=== PATIENT | female | born 1975 | race Caucasian/White ===

== ENCOUNTER 2017-06-25 14:33 | Outpatient (CLI) | payer OTHER ==
--- NOTE | 2017-06-25 15:19 | RAD ---
LUMBAR SPINE TWO VIEWS: History: Low back pain. FINDINGS: Lumbar vertebrae maintain height. There is mild loss of disc space at L5-S1. There is a slight kimani listhesis at L5-S1. There is evidence of posterior spondylosis. The other vertebrae maintain normal alignment. Disc spaces above L5 are normally preserved. Mild face t hypertrophy at L4-5 and L5-S1. IMPRESSION: Mild loss of disc space at L5-S1 with mild anterolisthesis and questioned posterior spondylosis. POS: [facility]
== END 2017-06-25 14:34 | disposition home or self-care (01) ==
LOC: TBSIIMAG 14:33
PROVIDERS: ATTEND Neurological Surgery
DX: M54.5 Low back pain (principal); M51.87 Other intervertebral disc disorders, lumbosacral region; M43.17 Spondylolisthesis, lumbosacral region
CPT/HCPCS: 72100

== ENCOUNTER 2017-07-04 05:53 | Day surgery (SDC) | payer OTHER ==
[2017-07-03 08:11] VITALS: BMI 34.7
[2017-07-04] MEDS ORDERED: Thrombin 5000 UNITS/5 ML VIAL ONE (06:16)
[2017-07-04] MEDS ORDERED: Sodium Chloride 0.9% 10 ML ONE (06:16)
[2017-07-04] MEDS ORDERED: Bupivacaine HCl 0.5%/Epinephrine 1:200,000/PF 30 ml Vial ONE (06:16)
[2017-07-04] MEDS ORDERED: CEFAZOLIN/Water 2 GM/20 ML SYRINGE ONE (06:42)
[2017-07-04 06:47] LABS: INR-International Normal Ratio 1.1; PTT 32.2 SEC (22.9-36.1); Prothrombin Time 13.8 SEC (12.0-14.7)
[2017-07-04 06:48] LABS: Hemoglobin 14.2 g/dL (12.0-16.0); Mean Corpuscular HGB CONC 35.6 g/dL (32.0-36.0); Mean Corpuscular Volume 89.9 fl (81.0-99.0); Mean Platelet Volume 6.7 fL (7.4-10.4); Platelet Count 268 thou/uL (130-400); RBC Distribution Width 11.3 % (11.5-14.5); Red Blood Cell (RBC) Count 4.43 mill/uL (4.20-5.40)
[2017-07-04] MEDS ORDERED: Scopolamine 1.5 mg/72 hour Patch ONE (06:50)
[2017-07-04] MEDS ORDERED: Promethazine HCl 25 MG/ML VIAL ONE (06:54)
[2017-07-04] MEDS ORDERED: Fentanyl 100 MCG/2 ML VIAL ONE ×4 (06:54→10:47)
[2017-07-04] MEDS ORDERED: HYDROmorphone 0.5 MG/0.5 ML SYRINGE ONE (06:54)
[2017-07-04] MEDS ORDERED: Morphine 4 MG/ML VIAL ONE (12:54)
[2017-07-04] MEDS ORDERED: HYDROcodone/Acetaminophen 5/325 mg Tablet ONE (13:02)
--- NOTE | 2017-07-04 13:56 | OP ---
DATE OF PROCEDURE: 07/04/2017 SURGEON: Rae Cuevas M.D. CONSULTING NURSE: Roly Parks PA-C. PREOPERATIVE INDICATION: Treat pain, prevent neurological deterioration. 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 PROCEDURES PERFORMED: Right-sided L4-L5 and L5-S1 partial hemilaminectomy, medial facetectomy, tanya inotomy, operating microscope. PREOPERATIVE MEDICATIONS: Ancef 2 grams IV. DRAIN NUMBER: Zero. DRAIN TYPE: None. OPERATIVE DICTATION: The patient was brought to the operating room. General endotracheal anesthesia was induced. The patient was positioned prone on the operating table and a lateral fluoro radiograp h was used to plan our incision. The lumbar skin was sterilely prepped and draped. We opened with a 10 blade knife and controlled bleeding with bipolar and monopolar cautery. We used monopolar cauter y to dissect through subcutaneous tissues to the thoracodorsal fascia. We incised the fascia to the right of midline and reflected the paraspinal muscles off the spinous process of L4-L5 and the superi or portion of the sacrum on the right side. A lateral fluoro radiograph confirmed the level upon whi ch we were operating. We then used bone rongeurs to fashion partial hemilaminectomy and medial facet ectomy at L4-L5 and L5-S1. The operative microscope was brought into the field. Under microscopic magnification using microsurgical techniques, we removed the yellow ligament from e ach of the interspaces. We identified the common thecal sac and the L5 and S1 nerve roots. We perfo rmed medial facetectomy until we were lateral to the nerve roots, we performed foraminotomy with fora minotomy Kerrison's over the L5 and S1 nerve roots in their foramen. We made sure a Julien ball prob e could pass through the lateral recess and out the foramen with the nerves. L5 and S1 were not as s everely conjoined set of nerves, but the L5 nerve root did leave the thecal sac inferiorly compared t o the normal configuration and S1 left superiorly, so that their origins were very close to each othe r. Due to the angle of L5 and L4 and the continuing tethering of the nerves, we elected to remove th e superior portion of the right side of the lamina of L5. This completed the right-sided hemilaminec debby. This nicely decompressed the common thecal sac and the L5 nerve root. We could perform wide f oraminotomy over the nerve root and achieve an even better decompression. A Julien ball probe was pa ssed out of the L4 foramen with that nerve finding no impingement and similarly of L5 and S1 nerve ro ots. We irrigated copiously with bacitracin irrigation. We controlled bleeding with gentle bipolar cautery. We infused local anesthetic in the paraspinal muscles. We removed the operating microscope and we closed the wound in anatomic layers. We applied a sterile dressing. This is a clean case an d no contamination.
[2017-07-04] MEDS ORDERED: PROPOFOL 200 MG/20 ML VIAL ONE (17:11)
[2017-07-04] MEDS ORDERED: Lidocaine 1% PF 5 ML VIAL ONE (17:11)
[2017-07-04] MEDS ORDERED: ePHEDrine/0.9% NaCl/PF SYRINGE 50 mg/10 ml ONE (17:11)
[2017-07-04] MEDS ORDERED: Dexamethasone 20 MG/5 ML VIAL ONE (17:11)
== END 2017-07-04 15:30 | disposition home or self-care (01) ==
LOC: SDC 05:53
PROVIDERS: ATTEND Neurological Surgery
PROC: 01NB0ZZ Release Lumbar Nerve, Open Approach (ICD-10-PCS; principal; 2017-07-04)
DX: M54.16 Radiculopathy, lumbar region (principal); M48.061 Spinal stenosis, lumbar region without neurogenic claudication; M48.07 Spinal stenosis, lumbosacral region; Z88.5 Allergy status to narcotic agent; Z79.899 Other long term (current) drug therapy
CPT/HCPCS: 36415; 76001; 85027; 85610; 85730; 96374; 96375; A4216; J0670; J1100; J1170; J2001; J2270; J2550; J2704; J3010; J3370; J3490